=== PATIENT | female | born 1950 | race Caucasian/White ===

== ENCOUNTER 2017-03-03 23:34 | Emergency (ER) | payer MEDICARE, BC ==
--- NOTE | ~2017-03-03 | ER ---
PATIENT'S NAME: VINH FRASER [facility] AGE: 66 Y [address] ROOM: [place] [address] LOCATION: [facility] ADMIT DATE: 03/03/2017 ER/Outpatient Report DISCHARGE DATE: 03/04/2017 FAMILY PHYSICIAN: Carlos Matias MD ATTENDING PHYSICIAN: Shannan Romo Time of Arrival: 2334 hours. Time of Evaluation: 0033 hours. IDENTIFICATION: A 66-year-old female. CHIEF COMPLAINT: Migraine headache. HISTORY OF PRESENT ILLNESS: The patient is a 66-year-old female with a history of migraine headaches. Today, she was at a meeting, out of town when she developed a migraine headache. She said normally she takes Imitrex with relief. She did take a dose of Imitrex today with no relief. When she returned to [facility], she went to [facility] at approximately 2:00 p.m., received Nubain, Phenergan and Toradol which usually works for her. She also had Phenergan suppository prescription and she took 25 mg Phenergan suppository at 8:00 p.m. tonight. She continues to vomit. She said the headache is better. It is maybe a 3/10 or 4/10 but she has persistent vomiting and feels that she is dehydrated. She said this headache she gets bad ones like these about 2 times per year and this is no different than the usual headache for her. PAST MEDICAL HISTORY: ALLERGIES: NO KNOWN DRUG ALLERGIES. CURRENT MEDICATIONS: 1. Imitrex and Phenergan suppository. 2. Topamax 100 mg b.i.d. 3. Myrbetriq 50 mg q.a.m. 4. Trazodone 150 mg daily. 5. Xanax 0.5 mg at bedtime. 6. Simvastatin 40 mg at bedtime. 7. Boniva 150 mg 1 time monthly. 8. Nexium 40 mg at bedtime. 9. Singulair 10 mg at bedtime. 10. Pristiq 50 mg q.a.m. 11. Celebrex 200 mg q.a.m. PATIENT'S NAME: VINH FRASER [facility] AGE: 66 Y [address] ROOM: [place] [address] LOCATION: [facility] ADMIT DATE: 03/03/2017 ER/Outpatient Report DISCHARGE DATE: 03/04/2017 FAMILY PHYSICIAN: Carlos Matias MD ATTENDING PHYSICIAN: Shannan Romo 12. Zofran. 13. Imitrex p.r.n. 14. Flunisolide 1 spray into each nose once daily. MEDICAL PROBLEMS: Migraine headaches, overactive bladder, insomnia, hyperlipidemia, osteopenia, gastroesophageal reflux disease, allergic rhinitis, depression. SOCIAL HISTORY: The patient is and lives here in [place]. Tobacco use, denies. Alcohol use, rare. Drug use, denies. REVIEW OF SYSTEMS: All systems reviewed negative other than what is noted in the HPI. PAST SURGICAL HISTORY: The patient did have surgery on her right thumb per Dr. Judd and it is currently in a splint. PHYSICAL EXAMINATION: VITAL SIGNS: Height 5 feet 5 inches, weight 61.5 kg, blood pressure 168/73, pulse 79, respirations 16, temperature 99.8, saturations 97% on room air. GENERAL: This is a 66-year-old female, in mild distress. HEENT: Head: Normocephalic, atraumatic. Ears: TMs translucent both ears. Nose: Mucosa pink, no lesions. Mouth: No lesions. Pharynx benign. NECK: Supple. No lymphadenopathy. LUNGS: Clear to auscultation. HEART: Regular rate and rhythm. ABDOMEN: Soft, nondistended and nontender. SKIN: [place], warm, and dry. No lesions or rashes noted. NEURO: The patient is alert and oriented x4. Cranial nerves 2 through 12 grossly intact. Motor strength 5/5 throughout. Sensation is intact to light touch. The patient has a splint on her right hand and thumb. EMERGENCY DEPARTMENT COURSE: An IV was initiated. The patient was given 1 L of normal saline, fentanyl 25 mcg IV and Phenergan 25 mg IM. Her pain completely relieved. She had no episodes of vomiting. She felt much better and will be discharged home. IMPRESSION: Migraine headache with persistent nausea and vomiting. PLAN: Home to rest. Continue current cares and medications and follow up with Dr. Matias next week. Follow up sooner if any problems or concerns. The patient PATIENT'S NAME: VINH FRASER [facility] AGE: 66 Y [address] ROOM: [place], [place] [address] LOCATION: [facility] ADMIT DATE: 03/03/2017 ER/Outpatient Report DISCHARGE DATE: 03/04/2017 FAMILY PHYSICIAN: Carlos Matias MD ATTENDING PHYSICIAN: Shannan Romo understands and agrees, and all questions have been answered. SHANNAN ROMO MD CAR/modl /[id number] d: 03/04/17 0410 t: 03/04/17 0432, OUTPATIENT REPORT
== END 2017-03-04 01:55 | disposition disaster alternative care site (69) ==
LOC: GMED 23:34
DX: G43.909 Migraine, unspecified, not intractable, without status migrainosus (principal); E78.5 Hyperlipidemia, unspecified; K21.9 Gastro-esophageal reflux disease without esophagitis; F32.9 Major depressive disorder, single episode, unspecified
CPT/HCPCS: J2550; J3010; J7030